=== PATIENT | male | born 1965 | race American Indian/Alaskan Native ===

== ENCOUNTER 2018-01-06 19:39 | Inpatient (IN) | payer OTHER ==
[2018-01-06] MEDS ORDERED: ASPIRIN PO ONE (19:59)
[2018-01-06 20:22] LABS: Hematocrit 35.5 % (35.5-45.6); Hemoglobin 12.2 gm/dl (11.8-15.2); Mean Corpuscular HGB Conc 34 % (32-34); Mean Corpuscular Hemoglobin 34 pg (28-32); Mean Corpuscular Volume 101 fl (84-94); Red Blood Count 3.53 M/mm3 (3.65-5.03); Red Cell Distribution Width 15.6 % (13.2-15.2)
--- NOTE | 2018-01-06 20:40 | Emergency Department Report ---
ED Chest Pain HPI - General Chief Complaint: Chest Pain Stated Complaint: CHEST PAIN, NUMBNESS IN LEFT LEG Time Seen by Provider: 01/06/18 20:25 Source: patient Mode of arrival: Ambulatory Limitations: No Limitations - History of Present Illness MD Complaint: chest pain -: Sudden, days(s) (3 days ago) Onset: during rest Pain Location: substernal, left chest Pain Radiation: none Severity: moderate, severe Severity scale (0 -10): 8 Quality: aching, heaviness, sharp Consistency: constant Improves With: rest, remaining still Worsens With: exertion, inspiration re: dyspnea. denies: nausea, vomting, diaphoresis, sense of impending doom Other Symptoms: denies: cough, fever, syncope, rash, acid taste in mouth, leg swelling, palpitations, burping Treatments Prior to Arrival: none Aspirin use within the Past 7 Days: (0) No - Related Data On Oral Contraceptives: No Home Medications Medication Instructions Recorded Confirmed Last Taken No Known Home Medications [No 01/07/18 01/07/18 Unknown Reported Home Medications] Allergies Allergy/AdvReac Type Severity Reaction Status Date / Time Penicillins Allergy Swelling Verified 01/06/18 19:50 Heart Score - HEART Score History: Slightly suspicious EKG: Normal Age: 45-65 Risk factors: 1-2 risk factors Troponin: < normal limit HEART Score: 2 ED Review of Systems ROS: Stated complaint: CHEST PAIN, NUMBNESS IN LEFT LEG Other details as noted in HPI Comment: All other systems reviewed and negative Constitutional: denies: chills, fever Eyes: denies: eye pain, eye discharge, vision change ENT: denies: ear pain, throat pain Respiratory: shortness of breath, SOB with exertion. denies: cough, wheezing Cardiovascular: chest pain, edema. denies: palpitations Endocrine: no symptoms reported Gastrointestinal: denies: abdominal pain, nausea, diarrhea Genitourinary: denies: urgency, dysuria Musculoskeletal: denies: back pain, joint swelling, arthralgia Skin: denies: rash, lesions Neurological: denies: headache, weakness, paresthesias Psychiatric: denies: anxiety, depression Hematological/Lymphatic: denies: easy bleeding, easy bruising ED Past Medical Hx - Past Medical History Previous Medical History?: Yes Hx Hypertension: Yes - Surgical History Past Surgical History?: Yes Hx Cholecystectomy: Yes - Family History Family history: hypertension - Social History Smoking Status: Current Every Day Smoker Substance Use Type: Alcohol - Medications Home Medications: Home Medications Medication Instructions Recorded Confirmed Last Taken Type No Known Home Medications [No 01/07/18 01/07/18 Unknown History Reported Home Medications] ED Physical Exam - General Limitations: No Limitations General appearance: alert, in no apparent distress - Head Head exam: Present: atraumatic, normocephalic - Eye Eye exam: Present: normal appearance - ENT ENT exam: Present: mucous membranes moist - Neck Neck exam: Present: normal inspection - Respiratory Respiratory exam: Present: normal lung sounds bilaterally. Absent: respiratory distress - Cardiovascular Cardiovascular Exam: Present: regular rate, normal rhythm. Absent: systolic murmur, diastolic murmur, rubs, gallop - GI/Abdominal GI/Abdominal exam: Present: soft, normal bowel sounds - Rectal Rectal exam: Present: deferred - Extremities Exam Extremities exam: Present: pedal edema - Back Exam Back exam: Present: normal inspection - Neurological Exam Neurological exam: Present: alert, oriented X3 - Psychiatric Psychiatric exam: Present: normal affect, normal mood - Skin Skin exam: Present: warm, dry, intact, normal color. Absent: rash ED Course Vital Signs 01/06/18 01/06/18 01/06/18 19:45 19:52 20:28 Temperature 98.2 F Pulse Rate 93 H 93 H 81 Respiratory 20 Rate Blood Pressure 184/115 184/115 O2 Sat by Pulse 99 99 Oximetry 01/06/18 01/06/18 01/06/18 20:30 20:46 21:00 Temperature Pulse Rate 91 H 82 78 Respiratory 24 17 17 Rate Blood Pressure 176/102 176/102 157/97 O2 Sat by Pulse 100 100 100 Oximetry 01/06/18 01/06/18 01/06/18 21:16 21:30 21:46 Temperature Pulse Rate 82 78 98 H Respiratory 15 23 12 Rate Blood Pressure 157/97 172/97 172/97 O2 Sat by Pulse 100 100 100 Oximetry 01/06/18 01/06/18 01/06/18 22:00 22:16 22:30 Temperature Pulse Rate 86 65 73 Respiratory 14 11 L Rate Blood Pressure 139/83 139/83 149/94 O2 Sat by Pulse 100 100 100 Oximetry 01/06/18 01/06/18 01/06/18 22:46 23:00 23:10 Temperature Pulse Rate 66 67 70 Respiratory 19 15 12 Rate Blood Pressure 172/97 156/94 156/94 O2 Sat by Pulse 100 99 100 Oximetry 01/06/18 01/06/18 01/06/18 23:16 23:30 23:46 Temperature Pulse Rate 69 71 72 Respiratory 11 L 10 L 13 Rate Blood Pressure 156/94 150/92 150/92 O2 Sat by Pulse 100 99 100 Oximetry 01/07/18 01/07/18 01/07/18 00:00 00:16 00:30 Temperature Pulse Rate 67 Respiratory Rate Blood Pressure 160/100 150/92 150/92 O2 Sat by Pulse 100 100 98 Oximetry - Reevaluation(s) Reevaluation #1: Discussed all results with patient. Discussed plan to admit patient to the hospital with patient. Patient agreed with admission and plan. We'll consult hospitalist for admission. Report given to hospitalist. 01/06/18 22:41 Reevaluation #2: Patient states chest pain has improved but is still present. Will give patient Lasix and another dose of morphine 01/06/18 23:17 ANDERSON score - Anderson Score Age > 65: (0) No Aspirin use within the Past 7 Days: (0) No 3 or more CAD Risk Factors: (0) No 2 or more Angina events in past 24 hrs: (1) Yes Known CAD with more than 50% Stenosis: (0) No Elevated Cardiac Markers: (0) No ST Deviation Greater than 0.5mm: (0) No ANDERSON Score: 1 ED Medical Decision Making - Lab Data Result diagrams: 01/06/18 20:03 01/07/18 01:02 - EKG Data -: EKG Interpreted by Mi EKG shows normal: sinus rhythm, axis, intervals, QRS complexes, ST-T waves Rate: normal - Radiology Data Radiology results: report reviewed, image reviewed - Medical Decision Making Patient states he-year-old gentleman that appears to be a new onset CHF. Will admit patient for further evaluation and treatment. Hospitalist agreed to admit. - Differential Diagnosis new chf. acs. sob. cp. Critical care attestation.: If time is entered above; I have spent that time in minutes in the direct care of this critically ill patient, excluding procedure time. ED Disposition Clinical Impression: Shortness of breath, Chest pain, Swelling of lower extremity, Elevated brain natriuretic peptide (BNP) level Disposition: DC-09 OP ADMIT IP TO THIS HOSP Is pt being admited?: Yes Does the pt Need Aspirin: No Condition: Serious Time of Disposition: 22:40
[2018-01-06 20:52] LABS: Platelet Count 77 K/mm3 (140-440)
[2018-01-06 21:00] LABS: Anisocytosis Few; Basophils % (Manual) 0 % (0.0-1.8); Eosinophils % (Manual) 0 % (0.0-4.3); Ovalocytes Few; Platelet Estimate Appears Decreased; Poikilocytosis Few; Total Cells Counted 100
[2018-01-06 21:11] LABS: Alanine Aminotransferase 99 units/L (7-56); Albumin 3.1 g/dL (3.9-5); BUN/Creatinine Ratio 17; Blood Urea Nitrogen 15 mg/dL (9-20); Calcium 8.8 mg/dL (8.4-10.2); Hemolysis Index 7
[2018-01-06 21:21] LABS: Bacteria,Urine 1+ /HPF (Negative); Bilirubin,Urine SM (Negative); Blood,Urine NEG (Negative); Color,Urine Amber (Yellow); Mucus,Urine FEW /HPF; Protein,Urine <15 mg/dL mg/dL (Negative)
[2018-01-06 21:22] LABS: Ictotest,Urine Negative (Negative)
--- NOTE | 2018-01-06 21:28 | XRay Report ---
FINAL REPORT PROCEDURE: XR CHEST ROUTINE 2V TECHNIQUE: PA and lateral chest radiographs were obtained. CPT 75973 HISTORY: IVON COMPARISON: No prior studies are available for comparison. FINDINGS: Heart: Normal. Mediastinum/Vessels: Normal. Lungs/Pleural space: Lungs are hyperinflated. There are no confluent infiltrates or mass lesions. Pleural spaces are clear.. Bony thorax: No acute osseous abnormality. Other: IMPRESSION: COPD. No acute pulmonary process..
[2018-01-06] MEDS ORDERED: LOPRESSOR IV ONE (21:54)
[2018-01-06] MEDS ORDERED: MORPHINE IV ONE ×2 (21:54→23:18)
[2018-01-06] MEDS ORDERED: LASIX IV ONE (23:06)
[2018-01-06] MEDS ORDERED: NITROSTAT SL PRN (23:55)
--- NOTE | 2018-01-06 23:59 | History and Physical Report ---
History of Present Illness Date of examination: 01/06/18 Date of admission: 01/06/2018 Chief complaint: SOB/ BLE SWELLING X MONTHS CHEST PAIN X 3-4 DAYS History of present illness: Mr Jesus is a pleasant 52 y/o male with h/o htn, noncompliant with his medications, Alcohol abuse, Tobacco abuse, who presented to [facility] with c/o progressively worsening SOB associated with substernal /left sided chest pain. Pt reports that he was in his usual state of health until a few months ago when he started experiencing SOB, associated with BLE edema, worse on the left, PND, decreased exercise tolerance and orthopnea. Pt has never had a cardiac workup. He did not present to the hospital or seek medical attention, because he thought that his symptoms would improve. Pt started experiencing 9/10 chest pain, sharp, intermittently associated with N /V and diaphoresis about 3-4 days ago. His last alcohol intake was on . Denies any h/o CAD or GA. ER Course Upon presentation to the ED BP was elevated, he received a dose of Lopressor 5mg IV, labs revealed BNP of 300's, negative troponin, CXR was also reported as negative, he was subsequently given Lasix 60mg IV x 1 dose, and pt has had good urinary output. He was stabilized enough and then referred for admission to the hospital medicine service. Past History Past Medical History: hypertension. denies: acute GA, CAD, COPD, heart failure , hyperlipidemia, liver disease, PVD, pulmonary embolism Past Surgical History: cholecystectomy Social history: single, Lives alone, smoking, alcohol abuse. denies: prescription drug abuse, IV drug use Family history: hypertension Medications and Allergies Allergies Allergy/AdvReac Type Severity Reaction Status Date / Time Penicillins Allergy Swelling Verified 01/06/18 19:50 Home Medications Medication Instructions Recorded Confirmed Last Taken Type No Known Home Medications [No 01/07/18 01/07/18 Unknown History Reported Home Medications] Active Meds: see MAR Review of Systems Constitutional: weight loss, weakness, chronic headaches, chronic pain, no fever , no chills, no sweats Eyes: bilateral: itching, other (NO VISUAL LOSS OR IMP[ARIMENT) Ears, nose, mouth and throat: nasal congestion, nasal discharge, post-nasal drip , no epistaxis, no bleeding gums, no sore throat Cardiovascular: chest pain, orthopnea, edema, lightheadedness, shortness of breath, dyspnea on exertion, paroxysmal nocturnal dyspnea, high blood pressure, leg edema, no palpitations, no rapid/irregular heart beat Respiratory: cough, cough with sputum, shortness of breath, dyspnea on exertion Gastrointestinal: vomiting Genitourinary Male: no dysuria, no hematuria, no incontinence, no erectile dysfunction, no genital pain Rectal: no pain, no incontinence, no bleeding Musculoskeletal: shooting leg pain, myalgias, no neck stiffness, no shooting arm pain Integumentary: no pruritis, no redness Neurological: no transient paralysis, no paralysis, no weakness, no headaches, no migraines Psychiatric: no memory loss, no change in sleep habits, no disorientation, no hallucinations Endocrine: no heat intolerance, no polyphagia, no excessive thirst, no polydipsia Hematologic/Lymphatic: no easy bruising, no easy bleeding, no lymphadenopathy Allergic/Immunologic: seasonal allergies, no urticaria, no allergic rhinitis, no anaphylaxis Exam - Constitutional Vitals: Temp Pulse Resp BP Pulse Ox 98.2 F 67 15 156/94 99 01/06/18 19:52 01/06/18 23:00 01/06/18 23:00 01/06/18 23:00 01/06/18 23:00 General appearance: Present: no acute distress, well-nourished - EENT Eyes: Present: PERRL, EOM intact ENT: hearing intact, clear oral mucosa - Neck Neck: Present: supple, normal ROM - Respiratory Respiratory: bilateral: diminished, rales, negative: rhonchi, wheezing - Cardiovascular Rhythm: regular Heart Sounds: Present: S1 & S2 - Extremities Extremities: no ischemia, abnormal (decreased ROM LEFT KNEE) Extremity abnormal: edema (more than 3+) Peripheral Pulses: within normal limits - Abdominal General gastrointestinal: Present: soft, non-tender, non-distended, normal bowel sounds Male genitourinary: Present: deferred - Integumentary Integumentary: Present: clear, warm, dry - Musculoskeletal Musculoskeletal: strength equal bilaterally, other (LEFT KNEE With suspected mild effusion,and suspect old Injury) - Psychiatric Psychiatric: appropriate mood/affect, intact judgment & insight, memory intact, cooperative - Neurologic Neurologic: CNII-XII intact, moves all extremities - Allied Health Allied health notes reviewed: nursing Results - Labs CBC & Chem 7: 01/06/18 20:03 01/07/18 01:02 Labs: Laboratory Last Values WBC 3.4 K/mm3 (4.5-11.0) L 01/06/18 20:03 RBC 3.53 M/mm3 (3.65-5.03) L 01/06/18 20:03 Hgb 12.2 gm/dl (11.8-15.2) 01/06/18 20:03 Hct 35.5 % (35.5-45.6) 01/06/18 20:03 MCV 101 fl (84-94) H 01/06/18 20:03 MCH 34 pg (28-32) H 01/06/18 20:03 MCHC 34 % (32-34) 01/06/18 20:03 RDW 15.6 % (13.2-15.2) H 01/06/18 20:03 Plt Count 77 K/mm3 (140-440) L 01/06/18 20:03 [place] % (Auto) Baker Test 01/06/18 20:03 Add Manual Diff Complete 01/06/18 20:03 Total Counted 100 01/06/18 20:03 Seg Neuts % (Manual) 55.0 % (40.0-70.0) 01/06/18 20:03 Band Neutrophils % 0 % 01/06/18 20:03 Lymphocytes % (Manual) 36.0 % (13.4-35.0) H 01/06/18 20:03 Reactive Lymphs % (Man) 0 % 01/06/18 20:03 Monocytes % (Manual) 9.0 % (0.0-7.3) H 01/06/18 20:03 Eosinophils % (Manual) 0 % (0.0-4.3) 01/06/18 20:03 Basophils % (Manual) 0 % (0.0-1.8) 01/06/18 20:03 Metamyelocytes % 0 % 01/06/18 20:03 Myelocytes % 0 % 01/06/18 20:03 Promyelocytes % 0 % 01/06/18 20:03 Blast Cells % 0 % 01/06/18 20:03 Nucleated RBC % Not Reportable 01/06/18 20:03 Seg Neutrophils # Man 1.9 K/mm3 (1.8-7.7) 01/06/18 20:03 Band Neutrophils # 0.0 K/mm3 01/06/18 20:03 Lymphocytes # (Manual) 1.2 K/mm3 (1.2-5.4) 01/06/18 20:03 Abs React Lymphs (Man) 0.0 K/mm3 01/06/18 20:03 Monocytes # (Manual) 0.3 K/mm3 (0.0-0.8) 01/06/18 20:03 Eosinophils # (Manual) 0.0 K/mm3 (0.0-0.4) 01/06/18 20:03 Basophils # (Manual) 0.0 K/mm3 (0.0-0.1) 01/06/18 20:03 Metamyelocytes # 0.0 K/mm3 01/06/18 20:03 Myelocytes # 0.0 K/mm3 01/06/18 20:03 Promyelocytes # 0.0 K/mm3 01/06/18 20:03 Blast Cells # 0.0 K/mm3 01/06/18 20:03 WBC Morphology Not Reportable 01/06/18 20:03 Hypersegmented Neuts Not Reportable 01/06/18 20:03 Hyposegmented Neuts Not Reportable 01/06/18 20:03 Hypogranular Neuts Not Reportable 01/06/18 20:03 Smudge Cells Not Reportable 01/06/18 20:03 Toxic Granulation Not Reportable 01/06/18 20:03 Toxic Vacuolation Not Reportable 01/06/18 20:03 Dohle Bodies Not Reportable 01/06/18 20:03 Pelger-Huet Anomaly Not Reportable 01/06/18 20:03 Paco Rods Not Reportable 01/06/18 20:03 Platelet Estimate Appears decreased 01/06/18 20:03 Clumped Platelets Not Reportable 01/06/18 20:03 Plt Clumps, EDTA Not Reportable 01/06/18 20:03 Large Platelets Not Reportable 01/06/18 20:03 Giant Platelets Not Reportable 01/06/18 20:03 Platelet Satelliting Not Reportable 01/06/18 20:03 Plt Morphology Comment Not Reportable 01/06/18 20:03 RBC Morphology Not Reportable 01/06/18 20:03 Dimorphic RBCs Not Reportable 01/06/18 20:03 Polychromasia Not Reportable 01/06/18 20:03 Hypochromasia Not Reportable 01/06/18 20:03 Poikilocytosis Few 01/06/18 20:03 Anisocytosis Few 01/06/18 20:03 Microcytosis Not Reportable 01/06/18 20:03 Macrocytosis Not Reportable 01/06/18 20:03 Spherocytes Not Reportable 01/06/18 20:03 Pappenheimer Bodies Not Reportable 01/06/18 20:03 Sickle Cells Not Reportable 01/06/18 20:03 Target Cells Not Reportable 01/06/18 20:03 Tear Drop Cells Not Reportable 01/06/18 20:03 Ovalocytes Few 01/06/18 20:03 Helmet Cells Not Reportable 01/06/18 20:03 [place] Bodies Not Reportable 01/06/18 20:03 [place] Rings Not Reportable 01/06/18 20:03 Lien Cells Not Reportable 01/06/18 20:03 Bite Cells Not Reportable 01/06/18 20:03 Crenated Cell Not Reportable 01/06/18 20:03 Elliptocytes Not Reportable 01/06/18 20:03 Acanthocytes (Spur) Not Reportable 01/06/18 20:03 Rouleaux Not Reportable 01/06/18 20:03 Hemoglobin C Crystals Not Reportable 01/06/18 20:03 Schistocytes Not Reportable 01/06/18 20:03 Malaria parasites Not Reportable 01/06/18 20:03 [place] Bodies Not Reportable 01/06/18 20:03 Hem Pathologist Commnt No 01/06/18 20:03 D-Dimer < 135.00 ng/mlDDU (0-234) 01/06/18 20:41 Sodium 136 mmol/L (137-145) L 01/06/18 20:03 Potassium 4.2 mmol/L (3.6-5.0) 01/06/18 20:03 Chloride 98.3 mmol/L (98-107) 01/06/18 20:03 Carbon Dioxide 25 mmol/L (22-30) 01/06/18 20:03 Anion Gap 17 mmol/L 01/06/18 20:03 BUN 15 mg/dL (9-20) 01/06/18 20:03 Creatinine 0.9 mg/dL (0.8-1.5) 01/06/18 20:03 Estimated GFR > 60 ml/min 01/06/18 20:03 BUN/Creatinine Ratio 17 % 01/06/18 20:03 Glucose 94 mg/dL (75-100) 01/06/18 20:03 Calcium 8.8 mg/dL (8.4-10.2) 01/06/18 20:03 Total Bilirubin 1.40 mg/dL (0.1-1.2) H 01/06/18 20:03 AST 153 units/L (5-40) H 01/06/18 20:03 ALT 99 units/L (7-56) H 01/06/18 20:03 Alkaline Phosphatase 120 units/L (35-129) 01/06/18 20:03 Troponin T < 0.010 ng/mL (0.00-0.029) 01/06/18 20:03 NT-Pro-B Natriuret Pep 319.2 pg/mL (0-900) 01/06/18 20:41 Total Protein 7.3 g/dL (6.3-8.2) 01/06/18 20:03 Albumin 3.1 g/dL (3.9-5) L 01/06/18 20:03 Albumin/Globulin Ratio 0.7 % 01/06/18 20:03 Urine Color [place] (Yellow) 01/06/18 Unknown Urine Turbidity Clear (Clear) 01/06/18 Unknown Urine pH 5.0 (5.0-7.0) 01/06/18 Unknown Ur Specific [place] 1.025 (1.003-1.030) 01/06/18 Unknown Urine Protein <15 mg/dl mg/dL (Negative) 01/06/18 Unknown Urine Glucose (UA) Neg mg/dL (Negative) 01/06/18 Unknown Urine Ketones Neg mg/dL (Negative) 01/06/18 Unknown Urine Blood Neg (Negative) 01/06/18 Unknown Urine Nitrite Neg (Negative) 01/06/18 Unknown Urine Bilirubin Sm (Negative) 01/06/18 Unknown Urine Ictotest Negative (Negative) 01/06/18 Unknown Urine Urobilinogen 4.0 mg/dL (<2.0) 01/06/18 Unknown Ur Leukocyte Esterase Neg (Negative) 01/06/18 Unknown Urine WBC (Auto) 1.0 /HPF (0.0-6.0) 01/06/18 Unknown Urine RBC (Auto) 3.0 /HPF (0.0-6.0) 01/06/18 Unknown U Epithel Cells (Auto) < 1.0 /HPF (0-13.0) 01/06/18 Unknown Urine Bacteria (Auto) 1+ /HPF (Negative) 01/06/18 Unknown Urine Mucus Few /HPF 01/06/18 Unknown - Imaging and Cardiology EKG: report reviewed Chest x-ray: report reviewed Assessment and Plan Assessment and plan: Assessment Acute Chest pain Acute and New onset Heart failure Chronic alcohol abuse Chronic Tobacco abuse Alcoholic Liver disease with transminitis BLE edema Macrocytosis Chronic thrombocytopenia 2/2 alcoohol abuse Chronic Leukopenia Full code status Plan Admit inpt to the floor HF protocol IV diuresis Cardio consult CIWA protocol 2D Echo Fluid restriction XR Knee left BLEEDING PRECAUTIONS AT ALL TIMES monitor platelets closely counseled tobacco and alcohol abuse cessation RUQ ultrasound Further pt mgt per hospital course dvt and GI ulcer prophylaxis More than 40 mins spent, more than 50% of the time was spent in pt counseling and coordination of care Advance Directives: Yes VTE prophylaxis?: Chemical Plan of care discussed with patient/family: Yes
[2018-01-07] MEDS ORDERED: COLACE PO ONE (00:44)
--- NOTE | 2018-01-07 01:11 | XRay Report ---
FINAL REPORT EXAM: XR KNEE 3V LT HISTORY: KNEE PAIN TECHNIQUE: Three views of the left knee were submitted. FINDINGS: There is mild narrowing of the medial and lateral compartments with marginal spurring medially and laterally. There is severe narrowing of the patellofemoral compartment also. There is no evidence of fracture or joint effusion. The soft tissues otherwise reveal vascular calcifications by the knee. IMPRESSION: Tricompartmental arthritic changes, particularly of the patellofemoral compartment. No evidence of fracture or joint effusion.
[2018-01-07] MEDS ORDERED: COLACE ONE (01:26)
[2018-01-07 01:36] LABS: Alanine Aminotransferase 105 units/L (7-56); Albumin 3.3 g/dL (3.9-5); BUN/Creatinine Ratio 19; Blood Urea Nitrogen 17 mg/dL (9-20); Calcium 8.5 mg/dL (8.4-10.2); Hemolysis Index 6
[2018-01-07 02:19] LABS: Chol/HDL Ratio 4.57 %
[2018-01-07] MEDS: PERCOCET 5/325 PO PRN ×3 (04:44→20:15)
[2018-01-07] MEDS: HEPARIN SUB-Q SCH ×3 (06:48→22:48)
[2018-01-07] MEDS: LASIX IV SCH ×2 (06:49→17:28)
--- NOTE | 2018-01-07 09:42 | Consultation ---
History of Present Illness Consult date: 01/07/18 Consult reason: chest pain History of present illness: Mr Jesus is a 52 y/o male with h/o htn, noncompliant with his medications, Alcohol abuse, Tobacco abuse, who presented to [facility] with c/o progressively worsening SOB associated with substernal and left sided chest pain. He started experiencing SOB, associated with BLE edema, worse on the left, PND, decreased exercise tolerance and orthopnea beginning several months ago. Patient's chest pain was sharp, occurring spontaneously and intermittently, associated with N/ V and diaphoresis about 3-4 days ago. Patient has no previous cardiac history. Past History Past Medical History: hypertension. denies: acute ND, CAD, COPD, heart failure , hyperlipidemia, liver disease, PVD, pulmonary embolism Past Surgical History: cholecystectomy Social history: single, Lives alone, smoking, alcohol abuse. denies: prescription drug abuse, IV drug use Family history: hypertension Medications and Allergies Allergies Allergy/AdvReac Type Severity Reaction Status Date / Time Penicillins Allergy Swelling Verified 01/06/18 19:50 Home Medications Medication Instructions Recorded Confirmed Last Taken Type No Known Home Medications [No 01/07/18 01/07/18 Unknown History Reported Home Medications] Active Meds: Active Medications Aspirin (Baby Aspirin) 81 mg PO QDAY [facility] Folic Acid (Folvite) 1 mg PO QDAY [facility] Furosemide (Lasix) 40 mg IV BID@0600,1800 [facility] Last Admin: 01/07/18 06:49 Dose: 40 mg Heparin Sodium (Porcine) (Heparin) 5,000 unit SUB-Q Q8HR [facility] Last Admin: 01/07/18 06:48 Dose: 5,000 unit Losartan Potassium (Cozaar) 25 mg PO QDAY [facility] Nitroglycerin (Nitrostat) 0.4 mg SL .Q5MIN PRN PRN Reason: Chest Pain Oxycodone/Acetaminophen (Percocet 5/325) 1 tab PO Q6H PRN PRN Reason: Pain, Moderate (4-6) Last Admin: 01/07/18 04:44 Dose: 1 tab Potassium Chloride (K-Dur) 20 meq PO BID [facility] Thiamine HCl (Vitamin B-1) 100 mg PO QDAY [facility] Physical Examination Vital Signs Pulse BP Pulse Ox 93 H 184/115 99 01/06/18 19:45 01/06/18 19:45 01/06/18 19:45 General appearance: no acute distress HEENT: Positive: PERRL, EOMI Neck: Positive: neck supple Cardiac: Positive: Reg Rate and Rhythm, S1/S2 Lungs: Positive: clear to auscultation Neuro: Positive: Grossly Intact Abdomen: Positive: Soft, Active Bowel Sounds Extremities: Present: normal Results 01/06/18 20:03 01/07/18 01:02 Cardiac Enzymes 01/06/18 01/07/18 Range/Units 20:03 01:02 AST 153 H 159 H (5-40) units/L Lipids 01/07/18 Range/Units 01:02 Triglycerides 110 (2-149) mg/dL Cholesterol 151 (50-199) mg/dL HDL Cholesterol 33 L (40-59) mg/dL Cholesterol/HDL Ratio 4.57 % CBC 01/06/18 Range/Units 20:03 WBC 3.4 L (4.5-11.0) K/mm3 RBC 3.53 L (3.65-5.03) M/mm3 Hgb 12.2 (11.8-15.2) gm/dl Hct 35.5 (35.5-45.6) % Plt Count 77 L (140-440) K/mm3 Comprehensive Metabolic Panel 01/06/18 01/07/18 Range/Units 20:03 01:02 Sodium 136 L 136 L (137-145) mmol/L Potassium 4.2 4.3 (3.6-5.0) mmol/L Chloride 98.3 98.5 (98-107) mmol/L Carbon Dioxide 25 28 (22-30) mmol/L BUN 15 17 (9-20) mg/dL Creatinine 0.9 0.9 (0.8-1.5) mg/dL Glucose 94 83 (75-100) mg/dL Calcium 8.8 8.5 (8.4-10.2) mg/dL AST 153 H 159 H (5-40) units/L ALT 99 H 105 H (7-56) units/L Alkaline Phosphatase 120 135 H (35-129) units/L Total Protein 7.3 7.7 (6.3-8.2) g/dL Albumin 3.1 L 3.3 L (3.9-5) g/dL EKG interpretations - Telemetry EKG Rhythm: Sinus Rhythm Assessment and Plan Acute Chest pain - Continue BB, ASA and statin. Plan for stress test tomorrow Acute and New onset Heart failure - possible. Check echo. Gentle diuresis as tolerated Chronic alcohol abuse - encourage cessation Chronic Tobacco abuse - encourage cessation Alcoholic Liver disease with transminitis Macrocytosis, Chronic thrombocytopenia, and leukopenia - likely 2/2 alcoohol abuse. Management per primary
[2018-01-07] MEDS: COZAAR PO SCH (10:21)
[2018-01-07] MEDS: BABY ASPIRIN PO SCH (10:21)
[2018-01-07] MEDS: VITAMIN B-1 PO SCH (10:21)
[2018-01-07] MEDS: FOLVITE PO SCH (10:22)
[2018-01-07] MEDS: K-DUR PO SCH ×2 (10:22→22:34)
--- NOTE | 2018-01-07 11:07 | Progress Note ---
Assessment and Plan Acute Chest pain Acute and New onset Heart failure Chronic alcohol abuse Chronic Tobacco abuse Alcoholic Liver disease with transaminesitis BLE edema Macrocytosis Chronic thrombocytopenia 2/2 alcoohol abuse Chronic Leukopenia Full code status Plan Commence pt on Daily weight, Strick Is and Os, IV diuresis, BB, ACEI, Statins, ASA Cardio consult [facility] protocol 2D Echo Fluid restriction XR Knee left BLEEDING PRECAUTIONS AT ALL TIMES monitor platelets closely counseled tobacco and alcohol abuse cessation RUQ ultrasound dvt and GI ulcer prophylaxis Subjective Date of service: 01/07/18 Principal diagnosis: chest pain Interval history: Still having chest pain though less Objective - Constitutional Vitals: Vital Signs - 12hr 01/06/18 01/06/18 01/06/18 23:10 23:16 23:30 Temperature Pulse Rate 70 69 71 Respiratory 12 11 L 10 L Rate Blood Pressure 156/94 156/94 150/92 Blood Pressure [Left] O2 Sat by Pulse 100 100 99 Oximetry 01/06/18 01/07/18 01/07/18 23:46 00:00 00:16 Temperature Pulse Rate 72 Respiratory 13 Rate Blood Pressure 150/92 160/100 150/92 Blood Pressure [Left] O2 Sat by Pulse 100 100 100 Oximetry 01/07/18 01/07/18 01/07/18 00:30 04:55 07:31 Temperature 98.2 F Pulse Rate 67 66 59 L Respiratory 20 Rate Blood Pressure 150/92 Blood Pressure 136/95 [Left] O2 Sat by Pulse 98 100 Oximetry 01/07/18 10:44 Temperature Pulse Rate Respiratory Rate Blood Pressure Blood Pressure [Left] O2 Sat by Pulse 100 Oximetry General appearance: Present: no acute distress, well-nourished - EENT Eyes: PERRL, EOM intact ENT: hearing intact Ears: bilateral: normal - Neck Neck: supple, normal ROM - Respiratory Respiratory effort: normal Respiratory: bilateral: CTA - Cardiovascular Rhythm: regular Heart Sounds: Present: S1 & S2. Absent: gallop, rub Extremities: pulses intact, No edema, normal color, Full ROM - Gastrointestinal General gastrointestinal: Present: soft, non-tender, non-distended, normal bowel sounds - Integumentary Integumentary: clear, warm, dry - Musculoskeletal Musculoskeletal: 1, strength equal bilaterally - Neurologic Neurologic: moves all extremities - Psychiatric Psychiatric: memory intact, appropriate mood/affect, intact judgment & insight - Labs CBC & Chem 7: 01/06/18 20:03 01/07/18 01:02 Labs: Abnormal lab results 01/06/18 01/06/18 01/07/18 Range/Units 20:03 20:03 01:02 WBC 3.4 L (4.5-11.0) K/mm3 RBC 3.53 L (3.65-5.03) M/mm3 MCV 101 H (84-94) fl MCH 34 H (28-32) pg RDW 15.6 H (13.2-15.2) % Plt Count 77 L (140-440) K/mm3 Lymphocytes % (Manual) 36.0 H (13.4-35.0) % Monocytes % (Manual) 9.0 H (0.0-7.3) % Sodium 136 L (137-145) mmol/L Total Bilirubin 1.40 H (0.1-1.2) mg/dL AST 153 H (5-40) units/L ALT 99 H (7-56) units/L Alkaline Phosphatase (35-129) units/L Albumin 3.1 L (3.9-5) g/dL HDL Cholesterol 33 L (40-59) mg/dL 01/07/18 Range/Units 01:02 WBC (4.5-11.0) K/mm3 RBC (3.65-5.03) M/mm3 MCV (84-94) fl MCH (28-32) pg RDW (13.2-15.2) % Plt Count (140-440) K/mm3 Lymphocytes % (Manual) (13.4-35.0) % Monocytes % (Manual) (0.0-7.3) % Sodium 136 L (137-145) mmol/L Total Bilirubin 1.50 H (0.1-1.2) mg/dL AST 159 H (5-40) units/L ALT 105 H (7-56) units/L Alkaline Phosphatase 135 H (35-129) units/L Albumin 3.3 L (3.9-5) g/dL HDL Cholesterol (40-59) mg/dL
[2018-01-07] MEDS ORDERED: HABITROL TD ONE (13:54)
[2018-01-08] MEDS: HEPARIN SUB-Q SCH ×3 (05:44→22:29)
[2018-01-08] MEDS: PERCOCET 5/325 PO PRN ×2 (05:44→22:29)
[2018-01-08] MEDS: LASIX IV SCH ×2 (05:44→17:32)
[2018-01-08 06:36] LABS: Hematocrit 34.5 % (35.5-45.6); Hemoglobin 11.6 gm/dl (11.8-15.2); Mean Corpuscular HGB Conc 34 % (32-34); Mean Corpuscular Hemoglobin 34 pg (28-32); Mean Corpuscular Volume 101 fl (84-94); Red Blood Count 3.42 M/mm3 (3.65-5.03); Red Cell Distribution Width 14.7 % (13.2-15.2)
[2018-01-08 06:42] LABS: Platelet Count 67 K/mm3 (140-440)
[2018-01-08 06:55] LABS: Alanine Aminotransferase 84 units/L (7-56); Albumin 2.8 g/dL (3.9-5); BUN/Creatinine Ratio 24; Blood Urea Nitrogen 24 mg/dL (9-20); Calcium 8.4 mg/dL (8.4-10.2); Hemolysis Index 4
[2018-01-08] MEDS ORDERED: LEXISCAN IV ONE ×2 (08:01→08:09)
--- NOTE | 2018-01-08 08:25 | Progress Note ---
Assessment and Plan Acute Chest pain - Continue BB, ASA and statin. Plan for stress test today. Maximize medical therpay as tolerated. Acute and New onset Heart failure - possible. pending echo. Gentle diuresis as tolerated. Change lasix to PO. Chronic alcohol abuse - encourage cessation Chronic Tobacco abuse - encourage cessation Alcoholic Liver disease with transaminitis Macrocytosis, Chronic thrombocytopenia, and leukopenia - likely 2/2 alcoohol abuse. Management per primary Subjective Date of service: 01/08/18 Principal diagnosis: chest pain Interval history: No acute events. resting comfortably. no chest pain or SOB. Objective Vital Signs Temp Pulse Resp BP BP Pulse Ox 01/08/18 08:00 97.7 F 61 20 134/81 100 01/08/18 02:01 97.6 F 78 18 148/93 98 01/07/18 22:46 97.4 F L 67 18 149/93 100 01/07/18 22:00 99 01/07/18 10:44 100 01/07/18 09:06 97.7 F 63 16 166/93 99 - Physical Examination HEENT: Positive: PERRL, EOMI Neck: Positive: neck supple Neuro: Positive: Grossly Intact Abdomen: Positive: Soft, Active Bowel Sounds Extremities: Present: normal - Labs and Meds Cardiac Enzymes 01/08/18 Range/Units 05:13 AST 123 H (5-40) units/L CBC 01/08/18 Range/Units 05:13 WBC 3.0 L (4.5-11.0) K/mm3 RBC 3.42 L (3.65-5.03) M/mm3 Hgb 11.6 L (11.8-15.2) gm/dl Hct 34.5 L (35.5-45.6) % Plt Count 67 L (140-440) K/mm3 Comprehensive Metabolic Panel 01/08/18 Range/Units 05:13 Sodium 136 L (137-145) mmol/L Potassium 3.7 (3.6-5.0) mmol/L Chloride 97.2 L (98-107) mmol/L Carbon Dioxide 26 (22-30) mmol/L BUN 24 H (9-20) mg/dL Creatinine 1.0 (0.8-1.5) mg/dL Glucose 87 (75-100) mg/dL Calcium 8.4 (8.4-10.2) mg/dL AST 123 H (5-40) units/L ALT 84 H (7-56) units/L Alkaline Phosphatase 113 (35-129) units/L Total Protein 6.7 (6.3-8.2) g/dL Albumin 2.8 L (3.9-5) g/dL - Imaging and Cardiology EKG: report reviewed
--- NOTE | 2018-01-08 10:42 | Progress Note ---
Assessment and Plan Acute Chest pain Acute and New onset Heart failure Chronic alcohol abuse Chronic Tobacco abuse Alcoholic Liver disease with transaminesitis BLE edema Macrocytosis Chronic thrombocytopenia 2/2 alcoohol abuse Chronic Leukopenia Full code status Plan Commence pt on Daily weight, Strick Is and Os, IV diuresis, BB, ACEI, Statins, ASA Cardio consult [facility] protocol 2D Echo Fluid restriction XR Knee left BLEEDING PRECAUTIONS AT ALL TIMES monitor platelets closely counseled tobacco and alcohol abuse cessation RUQ ultrasound dvt and GI ulcer prophylaxis Subjective Date of service: 01/08/18 Principal diagnosis: chest pain, Alcohol abuse Interval history: No more chest pain. Lying quietly in bed Objective - Constitutional Vitals: Vital Signs - 12hr 01/07/18 01/08/18 01/08/18 22:46 02:01 08:00 Temperature 97.4 F L 97.6 F 97.7 F Pulse Rate 67 78 61 Respiratory 18 18 20 Rate Blood Pressure 149/93 148/93 134/81 [Left] O2 Sat by Pulse 100 98 100 Oximetry General appearance: Present: no acute distress, well-nourished - EENT Eyes: PERRL, EOM intact - Neck Neck: supple, normal ROM - Respiratory Respiratory effort: normal Respiratory: bilateral: CTA - Cardiovascular Rhythm: regular Heart Sounds: Present: S1 & S2. Absent: gallop, rub Extremities: pulses intact, No edema, normal color, Full ROM - Gastrointestinal General gastrointestinal: Present: soft, non-tender, non-distended, normal bowel sounds - Integumentary Integumentary: clear, warm, dry - Musculoskeletal Musculoskeletal: 1, strength equal bilaterally - Neurologic Neurologic: moves all extremities - Psychiatric Psychiatric: memory intact, appropriate mood/affect, intact judgment & insight - Labs CBC & Chem 7: 01/08/18 05:13 01/08/18 05:13 Labs: Abnormal lab results 01/08/18 01/08/18 Range/Units 05:13 05:13 WBC 3.0 L (4.5-11.0) K/mm3 RBC 3.42 L (3.65-5.03) M/mm3 Hgb 11.6 L (11.8-15.2) gm/dl Hct 34.5 L (35.5-45.6) % MCV 101 H (84-94) fl MCH 34 H (28-32) pg Plt Count 67 L (140-440) K/mm3 Sodium 136 L (137-145) mmol/L Chloride 97.2 L (98-107) mmol/L BUN 24 H (9-20) mg/dL Total Bilirubin 1.30 H (0.1-1.2) mg/dL AST 123 H (5-40) units/L ALT 84 H (7-56) units/L Albumin 2.8 L (3.9-5) g/dL
[2018-01-08 11:21] LABS: Basophils % (Manual) 0 % (0.0-1.8); Total Cells Counted 100
[2018-01-08 11:22] LABS: Anisocytosis 1+; Macrocytosis 1+; Platelet Estimate Consistent w Auto
[2018-01-08] MEDS: VITAMIN B-1 PO SCH (12:26)
[2018-01-08] MEDS: BABY ASPIRIN PO SCH (12:26)
[2018-01-08] MEDS: COREG PO SCH ×2 (12:26→22:28)
[2018-01-08] MEDS: K-DUR PO SCH ×2 (12:26→22:28)
[2018-01-08] MEDS: COZAAR PO SCH (12:26)
[2018-01-08] MEDS: FOLVITE PO SCH (12:26)
--- NOTE | 2018-01-08 13:23 | Event Note ---
Date: 01/08/18 Nuclear stress test preliminary result nuclear stress test shows moderate sized mostly fixed inferior defect EF 54%
[2018-01-09] MEDS: HEPARIN SUB-Q SCH ×3 (06:06→22:08)
[2018-01-09] MEDS: LASIX IV SCH ×2 (06:07→19:50)
[2018-01-09 06:24] LABS: Hematocrit 36.8 % (35.5-45.6); Hemoglobin 12.7 gm/dl (11.8-15.2); Mean Corpuscular HGB Conc 35 % (32-34); Mean Corpuscular Hemoglobin 35 pg (28-32); Mean Corpuscular Volume 101 fl (84-94); Red Blood Count 3.65 M/mm3 (3.65-5.03); Red Cell Distribution Width 14.9 % (13.2-15.2)
[2018-01-09 06:30] LABS: Platelet Count 65 K/mm3 (140-440)
[2018-01-09 06:56] LABS: Alanine Aminotransferase 81 units/L (7-56); Albumin 2.7 g/dL (3.9-5); BUN/Creatinine Ratio 24; Blood Urea Nitrogen 24 mg/dL (9-20); Calcium 8.4 mg/dL (8.4-10.2); Hemolysis Index 38
[2018-01-09 08:48] LABS: Band Neutrophils # (Manual) 0.1 K/mm3; Macrocytosis 1+; Total Cells Counted 100
[2018-01-09 08:50] LABS: Platelet Estimate Consistent w Auto
--- NOTE | 2018-01-09 08:55 | Ultrasound Report ---
ULTRASOUND ABDOMEN LIMITED: TECHNIQUE: Transabdominal ultrasound with color Doppler interrogation. HISTORY: Abdominal pain, abnormal liver enzymes. COMPARISON: none. FINDINGS: LIVER: Normal. BILIARY SYSTEM: Cholecystectomy. The common bile duct measures 10 mm which is probably secondary to cholecystectomy. No choledocholithiasis is demonstrated. PANCREAS: Normal. RIGHT KIDNEY: Normal. PROXIMAL AORTA: Normal. ASCITES: None. IMPRESSION: Unremarkable exam.
[2018-01-09] MEDS: BABY ASPIRIN PO SCH (11:29)
[2018-01-09] MEDS: COREG PO SCH ×2 (11:30→22:07)
[2018-01-09] MEDS: COZAAR PO SCH (11:30)
[2018-01-09] MEDS: K-DUR PO SCH ×2 (11:31→22:07)
[2018-01-09] MEDS: VITAMIN B-1 PO SCH (11:31)
[2018-01-09] MEDS: FOLVITE PO SCH (11:31)
[2018-01-09] MEDS: PERCOCET 5/325 PO PRN (11:33)
--- NOTE | 2018-01-09 11:47 | Progress Note ---
Assessment and Plan Assessment and plan: Acute Chest pain with abnormal nuclear stress test -Troponin levels normal -NST showed moderate sized mostly fixed inferior defect -Continue aspirin, Coreg and Lipitor. -Cardiology following New onset diastolic Heart failure with exacerbation -Improved on treatment -Echocardiogram showed EF of 50-55% with diastolic dysfunction -continue Lasix and coreg Alcoholic Liver disease with transaminitis -for outpatient follow-up Hypertension, fairly controlled -Cozaar dose increased, we'll monitor. Chronic Tobacco abuse -cessation recommended Chronic thrombocytopenia and leukopenia 2/2 alcohol abuse -stable Disposition: For discharge when cleared by the system manager. History Interval history: Patient is a 52 year old male admitted for new onset CHF. He complained of dizziness on standing. Hospitalist Physical - Constitutional Vitals: Temp Pulse Resp BP Pulse Ox 97.9 F 65 20 155/95 98 01/09/18 04:10 01/09/18 11:30 01/09/18 04:10 01/09/18 11:30 01/09/18 04:10 General appearance: Present: no acute distress, well-nourished - EENT Eyes: Present: PERRL, EOM intact ENT: hearing intact - Neck Neck: Present: supple - Respiratory Respiratory effort: normal Respiratory: bilateral: CTA - Cardiovascular Rhythm: regular Heart Sounds: Present: S1 & S2 - Extremities Extremities: No edema - Abdominal General gastrointestinal: soft, non-tender, normal bowel sounds - Integumentary Integumentary: Present: dry - Neurologic Neurologic: CNII-XII intact Results - Labs CBC & Chem 7: 01/09/18 04:35 01/09/18 04:35 Labs: Laboratory Last Values WBC 3.2 K/mm3 (4.5-11.0) L 01/09/18 04:35 RBC 3.65 M/mm3 (3.65-5.03) 01/09/18 04:35 Hgb 12.7 gm/dl (11.8-15.2) 01/09/18 04:35 Hct 36.8 % (35.5-45.6) 01/09/18 04:35 MCV 101 fl (84-94) H 01/09/18 04:35 MCH 35 pg (28-32) H 01/09/18 04:35 MCHC 35 % (32-34) H 01/09/18 04:35 RDW 14.9 % (13.2-15.2) 01/09/18 04:35 Plt Count 65 K/mm3 (140-440) L 01/09/18 04:35 Col[place] % (Auto) Nutrition Services Assistant 01/08/18 05:13 Add Manual Diff Complete 01/09/18 04:35 Total Counted 100 01/09/18 04:35 Seg Neutrophils % Nutrition Services Assistant 01/09/18 04:35 Seg Neuts % (Manual) 40.0 % (40.0-70.0) 01/09/18 04:35 Band Neutrophils % 3.0 % 01/09/18 04:35 Lymphocytes % (Manual) 46.0 % (13.4-35.0) H 01/09/18 04:35 Reactive Lymphs % (Man) 1.0 % 01/09/18 04:35 Monocytes % (Manual) 8.0 % (0.0-7.3) H 01/09/18 04:35 Eosinophils % (Manual) 1.0 % (0.0-4.3) 01/09/18 04:35 Basophils % (Manual) 1.0 % (0.0-1.8) 01/09/18 04:35 Metamyelocytes % 0 % 01/09/18 04:35 Myelocytes % 0 % 01/09/18 04:35 Promyelocytes % 0 % 01/09/18 04:35 Blast Cells % 0 % 01/09/18 04:35 Nucleated RBC % Not Reportable 01/09/18 04:35 Seg Neutrophils # Man 1.3 K/mm3 (1.8-7.7) L 01/09/18 04:35 Band Neutrophils # 0.1 K/mm3 01/09/18 04:35 Lymphocytes # (Manual) 1.5 K/mm3 (1.2-5.4) 01/09/18 04:35 Abs React Lymphs (Man) 0.0 K/mm3 01/09/18 04:35 Monocytes # (Manual) 0.3 K/mm3 (0.0-0.8) 01/09/18 04:35 Eosinophils # (Manual) 0.0 K/mm3 (0.0-0.4) 01/09/18 04:35 Basophils # (Manual) 0.0 K/mm3 (0.0-0.1) 01/09/18 04:35 Metamyelocytes # 0.0 K/mm3 01/09/18 04:35 Myelocytes # 0.0 K/mm3 01/09/18 04:35 Promyelocytes # 0.0 K/mm3 01/09/18 04:35 Blast Cells # 0.0 K/mm3 01/09/18 04:35 WBC Morphology Not Reportable 01/09/18 04:35 Hypersegmented Neuts Not Reportable 01/09/18 04:35 Hyposegmented Neuts Not Reportable 01/09/18 04:35 Hypogranular Neuts Not Reportable 01/09/18 04:35 Smudge Cells Not Reportable 01/09/18 04:35 Toxic Granulation Not Reportable 01/09/18 04:35 Toxic Vacuolation Not Reportable 01/09/18 04:35 Dohle Bodies Not Reportable 01/09/18 04:35 Pelger-Huet Anomaly Not Reportable 01/09/18 04:35 Paco Rods Not Reportable 01/09/18 04:35 Platelet Estimate Consistent w auto 01/09/18 04:35 Clumped Platelets Not Reportable 01/09/18 04:35 Plt Clumps, EDTA Not Reportable 01/09/18 04:35 Large Platelets Not Reportable 01/09/18 04:35 Giant Platelets Not Reportable 01/09/18 04:35 Platelet Satelliting Not Reportable 01/09/18 04:35 Plt Morphology Comment Not Reportable 01/09/18 04:35 RBC Morphology Not Reportable 01/09/18 04:35 Dimorphic RBCs Not Reportable 01/09/18 04:35 Polychromasia Not Reportable 01/09/18 04:35 Hypochromasia Not Reportable 01/09/18 04:35 Poikilocytosis Not Reportable 01/09/18 04:35 Anisocytosis Not Reportable 01/09/18 04:35 Microcytosis Not Reportable 01/09/18 04:35 Macrocytosis 1+ 01/09/18 04:35 Spherocytes Not Reportable 01/09/18 04:35 Pappenheimer Bodies Not Reportable 01/09/18 04:35 Sickle Cells Not Reportable 01/09/18 04:35 Target Cells Not Reportable 01/09/18 04:35 Tear Drop Cells Not Reportable 01/09/18 04:35 Ovalocytes Not Reportable 01/09/18 04:35 Helmet Cells Not Reportable 01/09/18 04:35 [place] Bodies Not Reportable 01/09/18 04:35 Ida Rings Not Reportable 01/09/18 04:35 Lien Cells Not Reportable 01/09/18 04:35 Bite Cells Not Reportable 01/09/18 04:35 Crenated Cell Not Reportable 01/09/18 04:35 Elliptocytes Not Reportable 01/09/18 04:35 Acanthocytes (Spur) Not Reportable 01/09/18 04:35 Rouleaux Not Reportable 01/09/18 04:35 Hemoglobin C Crystals Not Reportable 01/09/18 04:35 Schistocytes Not Reportable 01/09/18 04:35 Malaria parasites Not Reportable 01/09/18 04:35 [place] Bodies Not Reportable 01/09/18 04:35 Hem Pathologist Commnt No 01/09/18 04:35 D-Dimer < 135.00 ng/mlDDU (0-234) 01/06/18 20:41 Sodium 138 mmol/L (137-145) 01/09/18 04:35 Potassium 4.4 mmol/L (3.6-5.0) 01/09/18 04:35 Chloride 98.9 mmol/L (98-107) 01/09/18 04:35 Carbon Dioxide 27 mmol/L (22-30) 01/09/18 04:35 Anion Gap 17 mmol/L 01/09/18 04:35 BUN 24 mg/dL (9-20) H 01/09/18 04:35 Creatinine 1.0 mg/dL (0.8-1.5) 01/09/18 04:35 Estimated GFR > 60 ml/min 01/09/18 04:35 BUN/Creatinine Ratio 24 % 01/09/18 04:35 Glucose 81 mg/dL (75-100) 01/09/18 04:35 Calcium 8.4 mg/dL (8.4-10.2) 01/09/18 04:35 Total Bilirubin 1.10 mg/dL (0.1-1.2) 01/09/18 04:35 AST 124 units/L (5-40) H 01/09/18 04:35 ALT 81 units/L (7-56) H 01/09/18 04:35 Alkaline Phosphatase 113 units/L (35-129) 01/09/18 04:35 Troponin T < 0.010 ng/mL (0.00-0.029) 01/07/18 18:58 NT-Pro-B Natriuret Pep 319.2 pg/mL (0-900) 01/06/18 20:41 Total Protein 7.0 g/dL (6.3-8.2) 01/09/18 04:35 Albumin 2.7 g/dL (3.9-5) L 01/09/18 04:35 Albumin/Globulin Ratio 0.6 % 01/09/18 04:35 Triglycerides 110 mg/dL (2-149) 01/07/18 01:02 Cholesterol 151 mg/dL (50-199) 01/07/18 01:02 LDL Cholesterol Direct 94 mg/dL (50-130) 01/07/18 01:02 HDL Cholesterol 33 mg/dL (40-59) L 01/07/18 01:02 Cholesterol/HDL Ratio 4.57 % 01/07/18 01:02 Urine Color Lindsey (Yellow) 01/06/18 Unknown Urine Turbidity Clear (Clear) 01/06/18 Unknown Urine pH 5.0 (5.0-7.0) 01/06/18 Unknown Ur Specific [place] 1.025 (1.003-1.030) 01/06/18 Unknown Urine Protein <15 mg/dl mg/dL (Negative) 01/06/18 Unknown Urine Glucose (UA) Neg mg/dL (Negative) 01/06/18 Unknown Urine Ketones Neg mg/dL (Negative) 01/06/18 Unknown Urine Blood Neg (Negative) 01/06/18 Unknown Urine Nitrite Neg (Negative) 01/06/18 Unknown Urine Bilirubin Sm (Negative) 01/06/18 Unknown Urine Ictotest Negative (Negative) 01/06/18 Unknown Urine Urobilinogen 4.0 mg/dL (<2.0) 01/06/18 Unknown Ur Leukocyte Esterase Neg (Negative) 01/06/18 Unknown Urine WBC (Auto) 1.0 /HPF (0.0-6.0) 01/06/18 Unknown Urine RBC (Auto) 3.0 /HPF (0.0-6.0) 01/06/18 Unknown U Epithel Cells (Auto) < 1.0 /HPF (0-13.0) 01/06/18 Unknown Urine Bacteria (Auto) 1+ /HPF (Negative) 01/06/18 Unknown Urine Mucus Few /HPF 01/06/18 Unknown
--- NOTE | 2018-01-09 18:21 | Progress Note ---
Assessment and Plan - Patient Problems (1) Shortness of breath Current Visit: Yes Status: Acute Plan to address problem: The patient has undergone extensive cardiac workup for shortness of breath on mild edema, negative Persantine thallium stress test, well-preserved left ventricular systolic function on echocardiogram. No further cardiac workup is indicated. We will defer to the medical service for further evaluation of the patient's persistent thrombocytopenia, elevated liver enzymes and elevated bilirubin levels. Subjective Date of service: 01/09/18 Principal diagnosis: chest pain, Alcohol abuse Interval history: The patient presented with atypical chest pain and mild lower extremity edema. There was a cardiac consultation for evaluation of CHF, but he patient's chest x -ray revealed normal cardiac silhouette and no interstitial edema, no heart failure. He has undergone cardiac evaluation with a Persantine thallium stress test that was normal. Echocardiogram also found well-preserved left ventricular systolic function with ejection fraction 50-55%, no significant valvular lesions. Most significant findings are evidence of significant thrombocytopenia, platelet count 67,000, mild to moderate elevation of the liver enzymes, which measure 100s to 150s, and elevation of the bilirubin level of 1.3. Objective Vital Signs Temp Pulse Pulse Resp Resp BP BP 01/09/18 13:02 01/09/18 11:30 62 155/95 01/09/18 04:10 97.9 F 59 L 20 132/83 01/09/18 03:50 62 18 01/08/18 23:55 97.9 F 73 20 128/81 01/08/18 23:29 18 01/08/18 22:33 18 01/08/18 22:29 18 01/08/18 22:28 68 133/89 01/08/18 20:19 62 Pulse Ox 01/09/18 13:02 99 01/09/18 11:30 01/09/18 04:10 98 01/09/18 03:50 01/08/18 23:55 98 01/08/18 23:29 01/08/18 22:33 01/08/18 22:29 01/08/18 22:28 01/08/18 20:19 - Physical Examination General: No Apparent Distress HEENT: Positive: PERRL, EOMI Neck: Positive: neck supple Cardiac: Positive: Reg Rate and Rhythm Lungs: Positive: Decreased Breath Sounds Neuro: Positive: Grossly Intact Abdomen: Positive: Soft, Active Bowel Sounds Skin: Positive: Clear Extremities: Present: edema (trace) - Labs and Meds Cardiac Enzymes 01/09/18 Range/Units 04:35 AST 124 H (5-40) units/L CBC 01/09/18 Range/Units 04:35 WBC 3.2 L (4.5-11.0) K/mm3 RBC 3.65 (3.65-5.03) M/mm3 Hgb 12.7 (11.8-15.2) gm/dl Hct 36.8 (35.5-45.6) % Plt Count 65 L (140-440) K/mm3 Comprehensive Metabolic Panel 01/09/18 Range/Units 04:35 Sodium 138 (137-145) mmol/L Potassium 4.4 (3.6-5.0) mmol/L Chloride 98.9 (98-107) mmol/L Carbon Dioxide 27 (22-30) mmol/L BUN 24 H (9-20) mg/dL Creatinine 1.0 (0.8-1.5) mg/dL Glucose 81 (75-100) mg/dL Calcium 8.4 (8.4-10.2) mg/dL AST 124 H (5-40) units/L ALT 81 H (7-56) units/L Alkaline Phosphatase 113 (35-129) units/L Total Protein 7.0 (6.3-8.2) g/dL Albumin 2.7 L (3.9-5) g/dL - Imaging and Cardiology EKG: report reviewed
[2018-01-10 05:09] LABS: Hematocrit 38.8 % (35.5-45.6); Hemoglobin 13.2 gm/dl (11.8-15.2); Mean Corpuscular HGB Conc 34 % (32-34); Mean Corpuscular Hemoglobin 35 pg (28-32); Mean Corpuscular Volume 101 fl (84-94); Red Blood Count 3.83 M/mm3 (3.65-5.03); Red Cell Distribution Width 14.7 % (13.2-15.2)
[2018-01-10 05:14] LABS: Platelet Count 72 K/mm3 (140-440)
[2018-01-10 05:31] LABS: Alanine Aminotransferase 87 units/L (7-56); BUN/Creatinine Ratio 24; Blood Urea Nitrogen 24 mg/dL (9-20); Calcium 8.1 mg/dL (8.4-10.2); Hemolysis Index 12
[2018-01-10 05:52] LABS: Anisocytosis Few; Band Neutrophils # (Manual) 0.1 K/mm3; Basophils % (Manual) 0 % (0.0-1.8); Eosinophils % (Manual) 0 % (0.0-4.3); Hypochromasia Few; Macrocytosis 1+; Ovalocytes Few; Platelet Estimate Consistent w Auto; Total Cells Counted 100
[2018-01-10] MEDS: HEPARIN SUB-Q SCH ×3 (06:08→21:56)
[2018-01-10] MEDS: LASIX IV SCH ×2 (06:08→17:06)
--- NOTE | 2018-01-10 08:26 | Progress Note ---
Assessment and Plan Acute Chest pain Acute and New onset Heart failure Chronic alcohol abuse Chronic Tobacco abuse Alcoholic Liver disease with transaminesitis BLE edema Macrocytosis Chronic thrombocytopenia 2/2 alcohol abuse Chronic Leukopenia Full code status Plan Commence pt on Daily weight, Strick Is and Os, IV diuresis, BB, ACEI, Statins, ASA Cardio consult [facility] protocol 2D Echo - nl LV fxn with EF of 50-55% Fluid restriction XR Knee left BLEEDING PRECAUTIONS AT ALL TIMES monitor platelets closely counseled tobacco and alcohol abuse cessation done RUQ ultrasound - nl dvt and GI ulcer prophylaxis Dispostion: D/c home in 1-2 day pending the platelet continue positive trending Subjective Date of service: 01/10/18 Principal diagnosis: chest pain, Alcohol abuse, thrombocytopenia Interval history: No more chest pain. Lying quietly in bed Objective - Constitutional Vitals: Vital Signs - 12hr 01/09/18 01/09/18 01/10/18 22:07 23:20 04:07 Temperature 98.3 F 98.3 F Pulse Rate 62 58 L 64 Respiratory 20 20 Rate Blood Pressure 133/80 Blood Pressure 125/80 128/79 [Left] O2 Sat by Pulse 96 99 Oximetry General appearance: Present: no acute distress, well-nourished - EENT Eyes: PERRL, EOM intact - Neck Neck: supple, normal ROM - Respiratory Respiratory effort: normal Respiratory: bilateral: CTA - Cardiovascular Rhythm: regular Heart Sounds: Present: S1 & S2. Absent: gallop, rub Extremities: pulses intact, No edema, normal color, Full ROM - Gastrointestinal General gastrointestinal: Present: soft, non-tender, non-distended, normal bowel sounds - Genitourinary Male genitourinary: normal - Integumentary Integumentary: clear, warm, dry - Musculoskeletal Musculoskeletal: 1, strength equal bilaterally - Neurologic Neurologic: moves all extremities - Psychiatric Psychiatric: memory intact, appropriate mood/affect, intact judgment & insight - Labs CBC & Chem 7: 01/10/18 04:27 01/10/18 04:27 Labs: Abnormal lab results 01/09/18 01/10/18 01/10/18 Range/Units 04:35 04:27 04:27 WBC 3.6 L (4.5-11.0) K/mm3 MCV 101 H (84-94) fl MCH 35 H (28-32) pg Plt Count 72 L (140-440) K/mm3 Lymphocytes % (Manual) 46.0 H (13.4-35.0) % Monocytes % (Manual) 8.0 H 8.0 H (0.0-7.3) % Seg Neutrophils # Man 1.3 L (1.8-7.7) K/mm3 Lymphocytes # (Manual) 1.1 L (1.2-5.4) K/mm3 BUN 24 H (9-20) mg/dL Calcium 8.1 L (8.4-10.2) mg/dL AST 124 H (5-40) units/L ALT 87 H (7-56) units/L Albumin 3.0 L (3.9-5) g/dL
[2018-01-10] MEDS: BABY ASPIRIN PO SCH (09:30)
[2018-01-10] MEDS: K-DUR PO SCH ×2 (09:31→21:55)
[2018-01-10] MEDS: VITAMIN B-1 PO SCH (09:31)
[2018-01-10] MEDS: FOLVITE PO SCH (09:31)
[2018-01-10] MEDS: PERCOCET 5/325 PO PRN ×2 (09:32→23:00)
[2018-01-10] MEDS: COREG PO SCH ×2 (09:33→21:56)
[2018-01-10] MEDS: COZAAR PO SCH (09:34)
--- NOTE | 2018-01-10 12:51 | Progress Note ---
Assessment and Plan - Patient Problems (1) Shortness of breath Current Visit: Yes Status: Acute Plan to address problem: The patient has undergone extensive cardiac workup for shortness of breath on mild edema, negative Persantine thallium stress test, well-preserved left ventricular systolic function on echocardiogram. No further cardiac workup is indicated. We will defer to the medical service for further evaluation of the patient's persistent thrombocytopenia, elevated liver enzymes and elevated bilirubin levels. Subjective Date of service: 01/10/18 Principal diagnosis: chest pain, Alcohol abuse Interval history: The patient is comfortable, no acute distress. No new cardiac complaints. No chest pain and no shortness of breath. Lower extremity edema is resolved. Objective Vital Signs Temp Pulse Resp BP BP Pulse Ox 01/10/18 09:34 65 125/88 01/10/18 09:33 65 125/88 01/10/18 08:25 98.2 F 72 18 132/88 97 01/10/18 04:07 98.3 F 64 20 128/79 99 01/09/18 23:20 98.3 F 58 L 20 125/80 96 01/09/18 22:07 62 133/80 01/09/18 19:43 98.1 F 60 20 133/80 97 01/09/18 18:00 70 01/09/18 13:02 99 - Physical Examination General: No Apparent Distress HEENT: Positive: PERRL, EOMI Neck: Positive: neck supple Cardiac: Positive: Reg Rate and Rhythm Lungs: Positive: Decreased Breath Sounds Neuro: Positive: Grossly Intact Abdomen: Positive: Soft, Active Bowel Sounds Skin: Positive: Clear Extremities: Present: edema (trace) - Labs and Meds Cardiac Enzymes 01/10/18 Range/Units 04:27 AST 124 H (5-40) units/L CBC 01/10/18 Range/Units 04:27 WBC 3.6 L (4.5-11.0) K/mm3 RBC 3.83 (3.65-5.03) M/mm3 Hgb 13.2 (11.8-15.2) gm/dl Hct 38.8 (35.5-45.6) % Plt Count 72 L (140-440) K/mm3 Comprehensive Metabolic Panel 01/10/18 Range/Units 04:27 Sodium 140 (137-145) mmol/L Potassium 4.4 (3.6-5.0) mmol/L Chloride 102.0 (98-107) mmol/L Carbon Dioxide 23 (22-30) mmol/L BUN 24 H (9-20) mg/dL Creatinine 1.0 (0.8-1.5) mg/dL Glucose 89 (75-100) mg/dL Calcium 8.1 L (8.4-10.2) mg/dL AST 124 H (5-40) units/L ALT 87 H (7-56) units/L Alkaline Phosphatase 123 (35-129) units/L Total Protein 7.0 (6.3-8.2) g/dL Albumin 3.0 L (3.9-5) g/dL - Imaging and Cardiology EKG: report reviewed
[2018-01-11] MEDS: LASIX IV SCH (06:03)
[2018-01-11] MEDS: HEPARIN SUB-Q SCH (06:03)
[2018-01-11 06:09] LABS: Hematocrit 38.4 % (35.5-45.6); Hemoglobin 13.2 gm/dl (11.8-15.2); Mean Corpuscular HGB Conc 34 % (32-34); Mean Corpuscular Hemoglobin 35 pg (28-32); Mean Corpuscular Volume 101 fl (84-94); Red Blood Count 3.79 M/mm3 (3.65-5.03)
[2018-01-11 06:13] LABS: INR 1.05 (0.87-1.13)
[2018-01-11 06:17] LABS: Platelet Count 73 K/mm3 (140-440)
[2018-01-11 06:28] LABS: Alanine Aminotransferase 88 units/L (7-56); Albumin 2.8 g/dL (3.9-5); BUN/Creatinine Ratio 24; Blood Urea Nitrogen 26 mg/dL (9-20); Calcium 8.4 mg/dL (8.4-10.2); Hemolysis Index 8
[2018-01-11 07:32] LABS: Anisocytosis 1+; Band Neutrophils # (Manual) 0.1 K/mm3; Basophils % (Manual) 0 % (0.0-1.8); Hypochromasia Few; Macrocytosis 1+; Ovalocytes 1+; Tear Drop Cells Few; Total Cells Counted 100
[2018-01-11 07:33] LABS: Large Platelets Few; Platelet Estimate Appears Decreased; Target Cells Rare
--- NOTE | 2018-01-11 09:39 | Discharge Summary ---
Providers - Providers Date of Admission: 01/06/18 23:53 Date of discharge: 01/11/18 Attending physician: JEANETTE DIAZ 01/06/18 23:55 Consult to Physician [CONS] Routine Comment: Consulting Provider: ELIZ BRYAN Physician Instructions: Reason For Exam: NEW ONSET CHF 01/06/18 23:58 Consult to Dietitian/Nutrition [CONS] Routine Physician Instructions: Reason For Exam: Reason for Consult: CHF 01/09/18 11:47 Physical Therapy Evaluation and Treat [CONS] Routine Comment: Reason For Exam: dizziness Primary care physician: BRYSON PATEL Hospitalization Reason for admission: chest pain Condition: Serious Pertinent studies: stress test was negative ECHO was normal with EF 50-55% nl LV fxn Procedures: none Hospital course: Mr Jesus is a pleasant 52 y/o male with h/o htn, noncompliant with his medications, Alcohol abuse, Tobacco abuse, who presented to [facility] with c/o progressively worsening SOB associated with substernal /left sided chest pain. Pt reports that he was in his usual state of health until a few months ago when he started experiencing SOB, associated with BLE edema, worse on the left, PND, decreased exercise tolerance and orthopnea. Pt has never had a cardiac workup. He did not present to the hospital or seek medical attention, because he thought that his symptoms would improve. Pt started experiencing 9/10 chest pain , sharp, intermittently associated with N/V and diaphoresis about 3-4 days ago. His last alcohol intake was on 01/05/18. On admission pt was commence on oxygen, ASA, NTG and morphin. Tanasminasemia identified. Pt commence on iv hydration. cardiac enzymes were unreamarkabel. Stress thallium was done result was negative for any ischemic changes. ECHO showed preserved LV function with EF of 50-55%. chest pain resolved. Couselling and ETOH and toabcco cessation was done. Pt was discharged to f/u with PCP in 3-5 day and cardiology in 7 days Disposition: [id number] TO HOME OR SELFCARE Time spent for discharge: 33 min - Discharge Diagnoses (1) Chest pain Status: Acute (2) Elevated brain natriuretic peptide (BNP) level Status: Acute (3) Shortness of breath Status: Acute (4) Swelling of lower extremity Status: Acute Core Measure Documentation - Palliative Care Palliative Care/ Comfort Measures: Not Applicable - Core Measures Any of the following diagnoses?: none Exam - Constitutional Vitals: Temp Pulse Resp BP Pulse Ox 97.8 F 62 20 133/94 99 01/11/18 08:13 01/11/18 08:13 01/11/18 08:13 01/11/18 08:13 01/11/18 08:13 General appearance: Present: no acute distress, well-nourished - EENT Eyes: Present: PERRL ENT: hearing intact, clear oral mucosa - Neck Neck: Present: supple, normal ROM - Respiratory Respiratory effort: normal Respiratory: bilateral: CTA - Cardiovascular Heart Sounds: Present: S1 & S2. Absent: rub, click - Extremities Extremities: pulses symmetrical, No edema Peripheral Pulses: within normal limits - Abdominal General gastrointestinal: Present: soft, non-tender, non-distended, normal bowel sounds - Integumentary Integumentary: Present: clear, warm, dry - Musculoskeletal Musculoskeletal: gait normal, strength equal bilaterally - Psychiatric Psychiatric: appropriate mood/affect, intact judgment & insight - Neurologic Neurologic: CNII-XII intact, moves all extremities Plan Activity: advance as tolerated, fall precautions Weight Bearing Status: Non-Weight Bearing Special Instructions: other (alcohol cessation counselling was done) Follow up with: BRYSON PATEL MD [Primary Care Provider] - 3-5 Days Prescriptions: AtorvaSTATin [Lipitor] 10 mg PO QHS #30 tablet Folic Acid [Folvite] 1 mg PO QDAY #30 tablet Losartan [Cozaar] 50 mg PO QDAY #30 tablet oxyCODONE /ACETAMINOPHEN [Percocet 5/325 mg] 1 tab PO Q6H PRN #20 tablet PRN Reason: Pain, Moderate (4-6) Thiamine [Vitamin B-1] 100 mg PO QDAY #30 tablet
[2018-01-11] MEDS: PERCOCET 5/325 PO PRN (10:32)
[2018-01-11] MEDS: K-DUR PO SCH (10:33)
[2018-01-11] MEDS: FOLVITE PO SCH (10:33)
[2018-01-11] MEDS: COREG PO SCH (10:33)
[2018-01-11] MEDS: COZAAR PO SCH (10:33)
[2018-01-11] MEDS: BABY ASPIRIN PO SCH (10:33)
[2018-01-11] MEDS: VITAMIN B-1 PO SCH (10:33)
[2018-01-11 11:26] VITALS: BP 135/88
--- NOTE | 2018-01-11 12:26 | Progress Note ---
Assessment and Plan Shortness of breath negative Persantine thallium stress test. well-preserved left ventricular systolic function on echocardiogram. Thrombocytopenia Elevated liver enzymes Elevated bilirubin levels Alcohol abuse Tobacco abuse Conservative cardiac management. Subjective Date of service: 01/11/18 Principal diagnosis: chest pain, Alcohol abuse, thrombocytopenia Interval history: Patient has no cardiac complaints. Objective Vital Signs Temp Pulse Resp BP BP Pulse Ox 01/11/18 11:21 97.6 F 60 20 135/88 100 01/11/18 08:13 97.8 F 62 20 133/94 99 01/11/18 05:20 98.0 F 58 L 20 126/72 98 01/11/18 04:43 69 96 01/10/18 23:41 98.1 F 59 L 20 145/89 98 01/10/18 22:30 58 L 145/89 97 01/10/18 21:56 64 142/86 01/10/18 20:31 71 01/10/18 19:22 65 98 01/10/18 19:20 98.0 F 62 20 142/86 98 01/10/18 17:36 98.1 F 56 L 18 116/76 100 01/10/18 17:35 98.1 F 58 L 18 116/76 99 - Physical Examination General: No Apparent Distress HEENT: Positive: PERRL Cardiac: Positive: Reg Rate and Rhythm Lungs: Positive: Decreased Breath Sounds Neuro: Positive: Grossly Intact - Labs and Meds Cardiac Enzymes 01/11/18 Range/Units 05:01 AST 127 H (5-40) units/L Coagulation 01/11/18 Range/Units 05:01 PT 14.2 (12.2-14.9) Sec. INR 1.05 (0.87-1.13) CBC 01/11/18 Range/Units 05:01 WBC 4.2 L (4.5-11.0) K/mm3 RBC 3.79 (3.65-5.03) M/mm3 Hgb 13.2 (11.8-15.2) gm/dl Hct 38.4 (35.5-45.6) % Plt Count 73 L (140-440) K/mm3 Comprehensive Metabolic Panel 01/11/18 Range/Units 05:01 Sodium 137 (137-145) mmol/L Potassium 4.2 (3.6-5.0) mmol/L Chloride 100.6 (98-107) mmol/L Carbon Dioxide 25 (22-30) mmol/L BUN 26 H (9-20) mg/dL Creatinine 1.1 (0.8-1.5) mg/dL Glucose 91 (75-100) mg/dL Calcium 8.4 (8.4-10.2) mg/dL AST 127 H (5-40) units/L ALT 88 H (7-56) units/L Alkaline Phosphatase 116 (35-129) units/L Total Protein 7.2 (6.3-8.2) g/dL Albumin 2.8 L (3.9-5) g/dL - Imaging and Cardiology EKG: report reviewed
--- NOTE | 2018-01-11 17:37 | Vascular Lab Report ---
LOWER EXTREMITY VENOUS DUPLEX: REASON FOR EXAM: Pain and swelling of the lower extremities. COMMENTS ON THE RIGHT: All veins visualized are freely compressible without evidence of internal echogenicity. Flow is spontaneous and phasic throughout. Varicose veins are noted around the medial knee. COMMENTS ON THE LEFT: All veins visualized are freely compressible without evidence of internal echogenicity. Flow is spontaneous and phasic throughout. A soft tissue change in the left knee area is consistent with a Dinh's cyst. Varicose veins are noted around the medial knee IMPRESSION: No evidence of acute or chronic deep venous thrombosis in either lower extremity. A soft tissue change in the left knee area is consistent with a Dinh's cyst. Varicose veins are noted around the knees bilaterally.
--- NOTE | 2018-01-11 21:37 | Treadmill Report ---
THALLIUM STRESS TEST REPORT LEFT VENTRICLE: Left ventricular chamber size is within normal spread. Perfusion study demonstrates mild diaphragmatic attenuation artifact, otherwise homogeneous uptake of the tracer in all segments, no significant perfusion defects identified. Gated analysis demonstrates normal left ventricular systolic function, ejection fraction of 54%. CONCLUSION: Suboptimal study with no demonstrable ischemic coronary artery disease. Clinical correlation is recommended. JOB# [id number] CA/NTS
== END 2018-01-11 14:43 | disposition home or self-care (01) | DRG 293 ==
LOC: ED 19:39 → 4A 23:53
PROVIDERS: ADMIT Family Medicine; ATTEND Family Medicine
DX: I11.0 Hypertensive heart disease with heart failure (principal); I50.33 Acute on chronic diastolic (congestive) heart failure; M79.89 Other specified soft tissue disorders; F17.200 Nicotine dependence, unspecified, uncomplicated; F10.10 Alcohol abuse, uncomplicated; K70.9 Alcoholic liver disease, unspecified; R74.0 Nonspecific elevation of levels of transaminase and lactic acid dehydrogenase [LDH]; D75.89 Other specified diseases of blood and blood-forming organs; D69.6 Thrombocytopenia, unspecified; D72.819 Decreased white blood cell count, unspecified; Z71.6 Tobacco abuse counseling; Z90.49 Acquired absence of other specified parts of digestive tract; Z82.49 Family history of ischemic heart disease and other diseases of the circulatory system; Z88.0 Allergy status to penicillin
CPT/HCPCS: 36415; 71046; 76705; 78452; 80053; 80061; 81001; 83880; 84484; 85007; 85025; 85379; 85610; 93005; 93010; 93017; 93306; 93970; 96374; 96375; 99406; A9270-GY; A9502; J1644; J1940; J2270; J2785